=== PATIENT | female | born 1940 | race Caucasian/White ===

== ENCOUNTER 2018-01-31 07:35 | Inpatient (IN) | payer MEDICARE, OTHER ==
[2018-01-31] VITALS (29 sets, daily range): BP systolic 95–138; BP diastolic 53–107
[~2018-01-31] VITALS: Ht 172.7 cm; Wt 48.6 kg
[2018-01-31] MEDS ORDERED: NOREPINEPHRINE 8 MG/D5W 250 ML 250 ML ONE ×2 (07:47→16:52)
[2018-01-31] MEDS ORDERED: SODIUM CHLORIDE 0.9% 1000ML 2,000 ML ONE (07:47)
[2018-01-31] MEDS ORDERED: ETOMIDATE 2 MG/ML 10 ML INJ IV STA (08:03)
[2018-01-31] MEDS ORDERED: SUCCINYLCHOLINE 200 MG/10 ML SYR IV STA (08:03)
[2018-01-31] MEDS ORDERED: SODIUM CHLORIDE 0.9% 1000ML 2,000 ML IV ONE (08:15)
[2018-01-31] MEDS ORDERED: FENTANYL CITRATE INJ 2,000 MCG in SODIUM CHLORIDE 0.9% 250ML 210 ML IV PRN (08:15)
[2018-01-31 08:22] LABS: ABG HCO3 45 mmol/L (23-28); ABG PCO2 80 mmHg (41-51); ABG PH 7.35 (7.31-7.41); ABG PO2 448 mmHg (80-105)
[2018-01-31] MEDS: NOREPINEPHRINE INJ 4MG/4ML 8 MG in DEXTROSE 5% 250ML 250 ML IV PRN ×2 (08:30→18:00)
[2018-01-31] MEDS: MIDAZOLAM HCL 25 MG in SODIUM CHLORIDE 0.9% 50ML 45 ML IV PRN ×3 (08:30→15:59)
[2018-01-31 08:41] LABS: BASOPHILS # (AUTO) 0.1 (0.0-0.1); BASOPHILS % 0.6 % (0.0-1.0); HEMATOCRIT 45.9 % (34.2-44.1); HEMOGLOBIN 13.6 g/dL (12.0-16.0); LYMPHOCYTES # (AUTO) 0.8 (1.0-3.2); LYMPHOCYTES % 6.4 % (18.0-39.1); MEAN CORPUSCULAR HEMOGLOBIN 30.3 pg (28-32); MEAN CORPUSCULAR HGB CONC 29.6 g/dL (31-35); MEAN CORPUSCULAR VOLUME 102.2 fL (81-99); MONOCYTES # (AUTO) 0.6 (0.2-0.8); MONOCYTES % 5.1 % (4.4-11.3); NEUTROPHILS # (AUTO) 10.2 (2.1-6.9); NEUTROPHILS % 87.6 % (38.7-80.0); PLATELET COUNT 241 x10e3/uL (140-360); RED BLOOD COUNT 4.49 x10e6/uL (3.6-5.1); RED CELL DISTRIBUTION WIDTH 13.7 % (11.7-14.4)
--- NOTE | 2018-01-31 08:54 | Diagnostic Imaging Report ---
PROCEDURE: CHEST SINGLE (PORTABLE) COMPARISON: None. INDICATIONS: ET TUBE, SOB FINDINGS: Tip of endotracheal tube projects approximately 7.8 cm above the howie. Left internal jugular central venous catheter tip projects over the upper right atrium. Enteric tube tip projects over the distal esophagus. Lungs are reasonably well inflated. No gross consolidation. Probable trace right pleural effusion. Bilateral skin folds. Normal heart size without overt pulmonary edema. No pneumothorax. No acute osseous abnormality. CONCLUSION: Endotracheal tube tip projects approximately 7.8 cm above the howie. Advancement by 3-4 cm should be considered. Enteric tube tip projects over the expected region of the distal esophagus. Advancement is suggested. Trace right pleural effusion. Dictated by: Arslan Washburn M.D. on 01/31/2018 at 8:56 Electronically approved by: Arslan Washburn M.D. on 01/31/2018 at 8:56
[2018-01-31 09:01] LABS: ALANINE AMINOTRANSFERASE 67 IU/L (0-55); ALBUMIN 3.5 g/dL (3.5-5.0); ALBUMIN/GLOBULIN RATIO 0.9 (0.8-2.0); ALKALINE PHOSPHATASE 76 IU/L (40-150); ANION GAP 13.7 mmol/L (8-16); BLOOD UREA NITROGEN 29 mg/dL (7-26); BUN/CREATININE RATIO 43 (6-25); CARBON DIOXIDE 39 mmol/L (22-29); CHLORIDE 94 mmol/L (98-107); CREATININE, SERUM 0.68 mg/dL (0.57-1.11); EST GLOMERULAR FILTRATION RATE > 60 ML/MIN (60-); GLUCOSE 153 mg/dL (74-118); MAGNESIUM 2.1 MG/DL (1.3-2.1); PHOSPHORUS 4.4 MG/DL (2.3-4.7); POTASSIUM 4.7 mmol/L (3.5-5.1); SODIUM 142 mmol/L (136-145)
[2018-01-31 09:03] LABS: B-TYPE NATRIURETIC PEPTIDE2 187.4 pg/mL (0-100)
[2018-01-31 09:19] LABS: THYROID STIMULATING HORMONE 5.862 uIU/mL (0.350-4.940)
[2018-01-31] MEDS ORDERED: AZITHROMYCIN 250 MG TAB PO SCH (09:30)
[2018-01-31] MEDS ORDERED: ASPIRIN 81 MG CHEW TAB PO ONE (09:30)
[2018-01-31] MEDS ORDERED: DEXTROSE 5%/0.45% SOD CHL 1,000 ML IV ONE (09:30)
[2018-01-31] MEDS ORDERED: SODIUM CHLORIDE FLUSH 10 ML SYR INJ PRN (09:30)
[2018-01-31] MEDS ORDERED: CEFTRIAXONE SOD 1 GM VIAL IV SCH (09:30)
[2018-01-31] MEDS ORDERED: METHYLPREDNISOLONE SOD SUCC 125 MG/2ML VIAL IV ONE (09:45)
[2018-01-31 10:00] LABS: CREATINE KINASE MB 3.6 ng/mL (0-5.0)
--- OUTSIDE RECORDS SUMMARY | 2018-01-31 10:10 | XMS REPORT ---
Author [facility] Address Unknown Phone Unavailable Care Team Providers Care Hook Up Driver Name Role Phone SOPHIA CROCKETT Unavailable Unavailable Problems This patient has no known problems. Allergies, Adverse Reactions, Alerts This patient has no known allergies or adverse reactions. Medications This patient has no known medications. Results Test Description Test Time Test Comments Text Results Atomic Results Result Comments CHEST SINGLE (PORTABLE) [place] [address] Patient Name: STEPHANIE LARA MR #: [id number] : 1940 Age/Sex: 77/F Req #: [id number] Adm Physician: Ordered by: SOPHIA CROCKETT MD Report #: [id number] Location: ER Room/Bed: Procedure: [id number] DX/CHEST SINGLE (PORTABLE) Exam Date: 01/31/18 Exam Time: 0800 REPORT STATUS: Signed PROCEDURE: CHEST SINGLE (PORTABLE) COMPARISON: None. INDICATIONS: ET TUBE, SOB FINDINGS: Tip of endotracheal tube projects approximately 7.8 cm above the howie. Left internal jugular central venous catheter tip projects over the upper right atrium. Enteric tube tip projects over the distal esophagus. Lungs are reasonably well inflated. No gross consolidation. Probable trace right pleural effusion. Bilateral skin folds. Normal heart size without overt pulmonary edema. No pneumothorax. No acute osseous abnormality. CONCLUSION: Endotracheal tube tip projects approximately 7.8 cm above the howie. Advancement by 3-4 cm should be considered. Enteric tube tip projects over the expected region of the distal esophagus. Advancement is suggested. Trace right pleural effusion. Dictated by: Renetta Washburn M.D. on 01/31/2018 at 8:56 Electronically approved by: Renetta Washburn M.D. on 01/31/2018 at 8:56 Dictated By: RENETTA WASHBURN MD 5 Transcribed By: KESHAV on 01/31/18855 COPY TO: SOPHIA CROCKETT MD
[2018-01-31] MEDS ORDERED: MIRTAZAPINE15 MG PO (10:38)
[2018-01-31] MEDS: AZITHROMYCIN 500MG/NS 250 ML 250 ML IV SCH (11:09)
[2018-01-31 11:19] LABS: ABG HCO3 39 mmol/L (23-28); ABG PCO2 45 mmHg (41-51); ABG PH 7.54 (7.31-7.41); ABG PO2 208 mmHg (80-105)
--- NOTE | 2018-01-31 11:42 | Diagnostic Imaging Report ---
PROCEDURE: A single AP view of the chest. COMPARISON: None. INDICATIONS: ET TUBE PLACEMENT FINDINGS: Lines/tubes: Endotracheal tube has its tip about 4 cm above the howie. Enteric tube has its tip in the distal esophagus. Left internal jugular centimeters catheter has its tip in the high right atrium. Lungs: The lungs are well inflated and clear. There is no evidence of pneumonia or pulmonary edema. Pleura: Very small right pleural effusion, unchanged. Heart and mediastinum: The heart and the mediastinum are unremarkable. Bones: No acute bony abnormality. IMPRESSION: Endotracheal tube has its tip about 4 cm above the howie. Enteric tube has its tip in the distal esophagus. Consider advancement. Dictated by: Sameer Wilcox M.D. on 01/31/2018 at 11:44 Electronically approved by: Sameer Wilcox M.D. on 01/31/2018 at 11:44
[2018-01-31] MEDS ORDERED: SODIUM CHLORIDE 0.9% 50ML 50 ML ONE (11:45)
[2018-01-31] MEDS ORDERED: IOPAMIDOL 370 MG/ML 200 ML INFUS..BTL INJ ONE (11:45)
--- NOTE | 2018-01-31 13:33 | Diagnostic Imaging Report ---
PROCEDURE: CT scan of the chest WITH intravenous contrast, using pulmonary embolus protocol. TECHNIQUE: The chest was scanned utilizing a multidetector helical scanner from the lung apex through the level of the adrenal glands after the IV administration of 71 cc of Isovue 370. Coronal and sagittal multiplanar reformations were obtained. COMPARISON: Chest radiograph same day. INDICATIONS: Pulmonary embolism FINDINGS: Lines/tubes: Endotracheal tube tip terminates above the howie. Enteric tube tip terminates proximal to the gastroesophageal junction. Tip of the left internal jugular central venous catheter terminates in the high right atrium. Vasculature: There is a filling defect within a segmental branch of the right lower lobe pulmonary artery seen on series 2 image 61. The main pulmonary artery, right and left pulmonary arteries, and their visualized the lobar and segmental branches are otherwise patent, without additional filling defect. Pulmonary outflow tract is of normal caliber. There is no ectasia or aneurysmal dilatation of the thoracic aorta.. Great vessel origins are normal in caliber and configuration. Lungs and Airways: Coarse linear and reticular opacities with superimposed groundglass nodules and consolidations in the right lower lobe. Right basal pleural thickening and calcifications. Pleura: As above. No pneumothorax. Heart and mediastinum: Visualized portions of the thyroid gland are heterogeneous. No axillary, hilar, or mediastinal lymphadenopathy. Soft tissues: No focal soft tissue abnormalities are Abdomen: Visualized portions of the liver, spleen, pancreas, and adrenals are unremarkable. Gallstone is partially visualized. Bones: Diffuse osteopenia. No acute osseous abnormalities. IMPRESSION: Solitary right lower lobe segmental pulmonary embolus without CT findings of right heart strain. Findings suggest right lower lobe aspiration pneumonitis or atypical pneumonia superimposed on chronic postinflammatory changes. Cholelithiasis. Endotracheal tube and left internal jugular central venous catheter positioned as above. Enteric tube tip lies in the distal esophagus and advancement is suggested. Findings were discussed by telephone with Dr. Gomez of the [facility] emergency center at 1:30 PM 01/31/2018. Dictated by: Arslan Washburn M.D. on 01/31/2018 at 13:34 Electronically approved by: Arslan Washburn M.D. on 01/31/2018 at 13:34
[2018-01-31] MEDS: ACETAMINOPHEN 1000 MG/100 ML IV PRN (13:34)
--- NOTE | 2018-01-31 13:43 | Consultation ---
DATE OF CONSULTATION: January 31, 2018 PULMONARY CONSULTATION SOURCE OF HISTORY: Patient's son and the ER chart. The patient is intubated and sedated. HPI: Ms. Segovia is a 77-year-old female. She was brought into the emergency room because of weakness and shortness of breath that started yesterday, and she was very lethargic and weak. In the emergency room, she was hypoxic in the 70s and required endotracheal intubation. Chest x-ray did not show any considerable infiltrate. However, there is a possibility of right lower lobe infiltrate. She is currently sedated and intubated and not able to give me any history. REVIEW OF SYSTEMS: Unable to elicit as the patient is sedated and intubated. PAST MEDICAL HISTORY: Per the son, the patient has no known medical problem. She had a facial laceration after a fall in 2014, which was operated here at [facility]. Otherwise, she has been in good health. FAMILY AND SOCIAL HISTORY: She smoked for 20-plus years but quit 30 years ago. She lives next door to her son. PHYSICAL EXAMINATION VITAL SIGNS: Temperature 98.1, pulse of 90, blood pressure 103/86 respiratory rate 18. She is on mechanical ventilator with FiO2 of 90%, PEEP of 8, saturation 100%. She is on Levophed because of hypotension. HEENT: Head is atraumatic and normocephalic. Pupils are reactive. NECK: Supple. CHEST: Clear to auscultation bilaterally. No wheezing. HEART: S1, S2 audible. No murmurs, gallops or rub. ABDOMEN: Soft, nontender. EXTREMITIES: No clubbing, cyanosis or edema. NEUROLOGIC: She is sedated and intubated. LABS: White count 11,000, hemoglobin 13.6, platelets 241. Chemistry is within normal limits. BNP is mildly elevated to 187. TSH is 5.862. Chest x-ray shows possibility of infiltrate. ASSESSMENT: Ms. Segovia is a 77-year-old female who presented to the emergency room with hypoxia and shortness of breath. Currently, the etiology is not very clear. Pneumonia versus pulmonary embolism reason for hypoxia. The patient is in circulatory shock. No previous medical history. Possibility of septic shock. PLAN 1. Agree with CT chest with IV contrast to rule out pulmonary embolism. 2. IV azithromycin and Rocephin have been started. 3. Vent support to keep the O2 sat more than or equal to 92%. Vent settings reviewed. 4. Discussed with the patient's son at bedside in detail. Thank you for this consult. Job#: [id number]
[2018-01-31] MEDS: ENOXAPARIN INJ 80 MG/0.8 ML SYR SC SCH (14:10)
[2018-01-31] MEDS ORDERED: ETOMIDATE 2 MG/ML 10 ML INJ IV ONE (14:22)
[2018-01-31] MEDS ORDERED: MIDAZOLAM HCL 2 MG/2 ML VIAL ONE (14:22)
[2018-01-31] MEDS ORDERED: SUCCINYLCHOLINE CHLORIDE 20 MG/ML 10ML VIAL ONE (14:22)
[2018-01-31 18:24] LABS: CREATINE KINASE MB 1.8 ng/mL (0-5.0)
[2018-01-31] MEDS: FAMOTIDINE 20 MG/2 ML VIAL IV SCH (18:52)
[2018-01-31] MEDS: METHYLPREDNISOLONE SOD SUCC 125 MG/2ML VIAL IV SCH (18:52)
[2018-01-31] MEDS: ALBUTEROL/IPRATROPIUM 3 ML NEB NEB SCH ×3 (19:05→22:25)
--- NOTE | 2018-01-31 20:37 | Diagnostic Imaging Report ---
EXAM: ABDOMEN-1VIEW (KUB), DATE: 01/31/2018 7:35 PM INDICATION: Check nasogastric tube. COMPARISON: None FINDINGS: LINES/TUBES: NG tube with distal tip projected on the gastric fundus laterally. BOWEL PATTERN: No evidence for obstruction. SOFT TISSUES: Calcified gallstones. No mass effect. LUNG BASES: Patchy density in the left right lung base. BONES: No acute findings. Rotatory levoscoliosis of the lumbar spine. IMPRESSION: NG tube with distal tip in the gastric fundus laterally. Signed by: Dr. Addison Wild M.D. on 01/31/2018 8:33 PM
[2018-01-31] MEDS ORDERED: ENOXAPARIN INJ 80 MG/0.8 ML SYR SC SCH (21:00)
[2018-01-31] MEDS ORDERED: SODIUM CHLORIDE 0.9% 1000ML 1,000 ML ONE (21:39)
[2018-01-31] MEDS: SODIUM CHLORIDE 0.9% 1000ML 1,000 ML IV SCH (21:46)
[2018-02-01] VITALS (65 sets, daily range): BP systolic 80–133; BP diastolic 44–99
[2018-02-01 01:19] LABS: CREATINE KINASE MB 3.6 ng/mL (0-5.0)
[2018-02-01] MEDS: ENOXAPARIN INJ 80 MG/0.8 ML SYR SC SCH ×2 (01:43→14:00)
[2018-02-01] MEDS: METHYLPREDNISOLONE SOD SUCC 125 MG/2ML VIAL IV SCH (01:43)
[2018-02-01] MEDS ORDERED: METOPROLOL TARTRATE INJ 1 MG/ML VIAL IV ONE (02:30)
[2018-02-01] MEDS: ACETAMINOPHEN 1000 MG/100 ML IV PRN ×3 (02:46→08:51)
[2018-02-01] MEDS: ALBUTEROL/IPRATROPIUM 3 ML NEB NEB SCH ×6 (03:35→23:00)
[2018-02-01 05:13] LABS: BASOPHILS % 0.1 % (0.0-1.0); HEMATOCRIT 36.8 % (34.2-44.1); HEMOGLOBIN 12.4 g/dL (12.0-16.0); LYMPHOCYTES % 9.3 % (18.0-39.1); MEAN CORPUSCULAR HEMOGLOBIN 30.5 pg (28-32); MEAN CORPUSCULAR HGB CONC 33.7 g/dL (31-35); MEAN CORPUSCULAR VOLUME 90.6 fL (81-99); MONOCYTES # (AUTO) 0.3 (0.2-0.8); MONOCYTES % 2.4 % (4.4-11.3); NEUTROPHILS % 87.8 % (38.7-80.0); PLATELET COUNT 191 x10e3/uL (140-360); RED BLOOD COUNT 4.06 x10e6/uL (3.6-5.1); RED CELL DISTRIBUTION WIDTH 13.9 % (11.7-14.4)
[2018-02-01 05:22] LABS: INR 1.14; PROTHROMBIN TIME 13.7 seconds (11.9-14.5)
[2018-02-01 05:23] LABS: PARTIAL THROMBOPLASTIN TIME 33.6 seconds (23.8-35.5)
[2018-02-01 05:31] LABS: ANION GAP 13.6 mmol/L (8-16); BLOOD UREA NITROGEN 26 mg/dL (7-26); BUN/CREATININE RATIO 45 (6-25); CARBON DIOXIDE 27 mmol/L (22-29); CHLORIDE 101 mmol/L (98-107); CHOL/HDL RATIO 2.5 (3.0-3.6); CHOLESTEROL 157 MD/DL (0-199); CREATININE, SERUM 0.58 mg/dL (0.57-1.11); EST GLOMERULAR FILTRATION RATE > 60 ML/MIN (60-); GLUCOSE 139 mg/dL (74-118); HDL CHOLESTEROL 62 MG/DL (40-60); LDL CHOLESTEROL 82 MG/DL (60-130); POTASSIUM 3.6 mmol/L (3.5-5.1); SODIUM 138 mmol/L (136-145); TRIGLYCERIDES 67 MG/DL (0-149)
--- NOTE | 2018-02-01 06:17 | Diagnostic Imaging Report ---
EXAMINATION: CHEST SINGLE (PORTABLE) INDICATION: Intubation. COMPARISON: 01/31/2018 FINDINGS: TUBES and LINES: Endotracheal, and left IJ central line catheter are visualized in good position. Interval advancement of NG tube now below the diaphragm LUNGS: Lungs are well inflated. Lungs are clear. There is mild prominence of the central pulmonary vasculature, consistent with pulmonary venous congestion. PLEURA: No pleural effusion or pneumothorax. HEART AND MEDIASTINUM: The cardiomediastinal silhouette is unremarkable. BONES AND SOFT TISSUES: No acute osseous lesion. Soft tissues are unremarkable. UPPER ABDOMEN: No free air under the diaphragm. IMPRESSION: 1. No acute thoracic abnormality. 2. Tubes and lines are in good position. Signed by: Dr. Luis Lafleur M.D. on 02/01/2018 6:13 AM
[2018-02-01] MEDS: SODIUM CHLORIDE 0.9% 1000ML 1,000 ML IV SCH (07:45)
[2018-02-01] MEDS: FAMOTIDINE 20 MG/2 ML VIAL IV SCH ×2 (08:50→17:27)
--- NOTE | 2018-02-01 10:18 | Consultation ---
DATE OF CONSULTATION: February 01, 2018 CARDIOLOGY CONSULTATION REASON FOR CONSULT: Tachycardia. REQUESTING PHYSICIAN: Dr. Burns HPI: This is a 77-year-old female that presented with shortness of breath. According to the son at the bedside, she has a history of emphysema. Does not follow up with any doctor. She was found with respiratory distress and altered mental status and was brought over for evaluation. In the emergency room, she was found with low oxygen saturation, and she was intubated and later transferred to the ICU for evaluation. Her blood pressure was found to be on the low side, and she was started on a Levophed drip, which was later weaned off. Last night, she was being bathed by the nurse, and the heart went into the 130s. Cardiology was consulted for tachycardia. She is intubated and sedated, and the son is at the bedside. EKG is showing a normal sinus rhythm. Troponin was negative. BNP 187. PAST MEDICAL HISTORY: Emphysema and fall. PAST SURGICAL HISTORY: Facial surgery in 2015 due to fall. FAMILY HISTORY: Noncontributory. SOCIAL HISTORY: She lives at home alone with the son next door. She smoked for many years but quit 30 years ago. MEDICATIONS: She was on ekkz-vwa-wenjkck vitamins. ALLERGIES: SHE IS NOT ALLERGIC TO ANY MEDICATION. REVIEW OF SYSTEMS: Unable to obtain. She is intubated and sedated. PHYSICAL EXAMINATION VITAL SIGNS: Temperature 97, heart rate 69, blood pressure 118/80, oxygen saturation 100% on mechanical ventilator. GENERAL: She is thin and frail, intubated and sedated. HEENT: Mucous membranes are dry. NECK: Supple. LUNGS: Bilateral decreased breath sounds. CARDIOVASCULAR: S1 and S2 present. ABDOMEN: Soft. NEUROLOGIC: Sedated. EXTREMITIES: Bilateral lower with trace edema. LABS: Sodium 138, potassium 3.6, chloride 101, CO2 27, BUN 26, creatinine 0.58, glucose 139. White blood cells 10.2, hemoglobin 12.4, hematocrit 36.8, platelets 191. PT 13.7, PTT 33.6, INR 1.14. IMPRESSION 1. Tachycardia. 2. Respiratory distress. 3. Altered mental status. 4. Pulmonary emboli. 5. Pneumonia. 6. Hypotension. ASSESSMENT AND PLAN: The heart rate is controlled back to normal sinus rhythm. Blood pressure is stable. She has been off Levophed drip. We will go ahead and get an echocardiogram to assess the LV and valve function. She has been started on Lovenox b.i.d. Further cardiac workup pending clinical course. Thank you for this consultation. Dictated by Alexander Heck NP Job#: [id number]
[2018-02-01] MEDS: AZITHROMYCIN 500MG/NS 250 ML 250 ML IV SCH (10:21)
[2018-02-01 11:07] LABS: FREE T4 (FREE THYROXINE) 0.94 ng/dL (0.9-1.8)
[2018-02-01] MEDS: PIPER-TAZ 3.375 GM 100 ML IV SCH ×2 (12:00→17:27)
[2018-02-01] MEDS ORDERED: ACETAMINOPHEN 1000 MG/100 ML IV PRN (21:45)
[2018-02-01] MEDS: METHYLPREDNISOLONE SOD SUCC 40 MG/ML VIAL IV SCH (21:47)
[2018-02-02] VITALS (48 sets, daily range): BP systolic 81–143; BP diastolic 51–98
[2018-02-02] MEDS: PIPER-TAZ 3.375 GM 100 ML IV SCH ×4 (00:30→18:00)
[2018-02-02] MEDS: ENOXAPARIN INJ 80 MG/0.8 ML SYR SC SCH ×2 (02:05→14:10)
[2018-02-02] MEDS: ALBUTEROL/IPRATROPIUM 3 ML NEB NEB SCH ×4 (02:45→11:35)
--- NOTE | 2018-02-02 06:00 | Diagnostic Imaging Report ---
EXAMINATION: CHEST SINGLE (PORTABLE) INDICATION: Intubated COMPARISON: 02/01/2018 FINDINGS: TUBES and LINES: Endotracheal, NG tube, left IJ central line catheter and oxygen tubing are stable. LUNGS: Lungs are not well inflated. Interval development of interlobular septi thickening. There is mild prominence of the central pulmonary vasculature, consistent with pulmonary venous congestion. PLEURA: Small right pleural effusion. HEART AND MEDIASTINUM: The cardiomediastinal silhouette is unremarkable. There are atherosclerotic calcifications within the aorta. BONES AND SOFT TISSUES: No acute osseous lesion. Soft tissues are unremarkable. UPPER ABDOMEN: No free air under the diaphragm. IMPRESSION: Findings are compatible with developing pulmonary edema and small right pleural effusion. Tubes and lines are stable Signed by: Dr. Luis Lafleur M.D. on 02/02/2018 5:57 AM
[2018-02-02 06:01] LABS: BASOPHILS % 0.1 % (0.0-1.0); HEMATOCRIT 33.8 % (34.2-44.1); HEMOGLOBIN 11.4 g/dL (12.0-16.0); LYMPHOCYTES # (AUTO) 1.2 (1.0-3.2); LYMPHOCYTES % 9.4 % (18.0-39.1); MEAN CORPUSCULAR HEMOGLOBIN 30.6 pg (28-32); MEAN CORPUSCULAR HGB CONC 33.7 g/dL (31-35); MEAN CORPUSCULAR VOLUME 90.9 fL (81-99); MONOCYTES # (AUTO) 0.7 (0.2-0.8); MONOCYTES % 5.3 % (4.4-11.3); NEUTROPHILS % 84.6 % (38.7-80.0); PLATELET COUNT 196 x10e3/uL (140-360); RED BLOOD COUNT 3.72 x10e6/uL (3.6-5.1); RED CELL DISTRIBUTION WIDTH 14.3 % (11.7-14.4)
[2018-02-02 06:10] LABS: ANION GAP 10.4 mmol/L (8-16); BLOOD UREA NITROGEN 26 mg/dL (7-26); BUN/CREATININE RATIO 49 (6-25); CALCIUM 8.5 mg/dL (8.4-10.2); CARBON DIOXIDE 25 mmol/L (22-29); CHLORIDE 107 mmol/L (98-107); CREATININE, SERUM 0.53 mg/dL (0.57-1.11); EST GLOMERULAR FILTRATION RATE > 60 ML/MIN (60-); GLUCOSE 102 mg/dL (74-118); POTASSIUM 3.4 mmol/L (3.5-5.1); SODIUM 139 mmol/L (136-145)
[2018-02-02] MEDS ORDERED: SODIUM CHLORIDE 0.9% 1000ML 1,000 ML ONE (06:49)
[2018-02-02] MEDS: FAMOTIDINE 20 MG/2 ML VIAL IV SCH ×2 (08:18→18:00)
[2018-02-02] MEDS: METHYLPREDNISOLONE SOD SUCC 40 MG/ML VIAL IV SCH ×2 (08:18→21:21)
[2018-02-02] MEDS ORDERED: POTASSIUM CHLORIDE 20MEQ/100ML 200 ML IV ONE (08:45)
[2018-02-02 09:48] LABS: ABG HCO3 26 mmol/L (23-28); ABG PCO2 39 mmHg (41-51); ABG PH 7.43 (7.31-7.41); ABG PO2 69 mmHg (80-105)
[2018-02-02] MEDS: AZITHROMYCIN 500MG/NS 250 ML 250 ML IV SCH (10:22)
[2018-02-02] MEDS ORDERED: FUROSEMIDE INJ 10 MG/ML 4 ML VIAL IV ONE ×2 (11:30→11:45)
[2018-02-02] MEDS: IPRATROPIUM BROMIDE 0.02% 2.5 ML NEB NEB SCH ×2 (15:05→19:25)
[2018-02-02] MEDS: LEVALBUTEROL HCL SOLN NEBU 1.25 MG/3 ML NEB INH PRN ×2 (15:05→19:25)
[2018-02-02] MEDS: METOPROLOL TARTRATE INJ 1 MG/ML VIAL IV PRN (20:08)
[2018-02-03] VITALS (68 sets, daily range): BP systolic 101–134; BP diastolic 52–104
[2018-02-03] MEDS: PIPER-TAZ 3.375 GM 100 ML IV SCH ×4 (00:40→18:04)
[2018-02-03] MEDS: IPRATROPIUM BROMIDE 0.02% 2.5 ML NEB NEB SCH ×4 (02:20→19:15)
[2018-02-03] MEDS: LEVALBUTEROL HCL SOLN NEBU 1.25 MG/3 ML NEB INH PRN ×4 (02:20→19:15)
[2018-02-03] MEDS: METOPROLOL TARTRATE INJ 1 MG/ML VIAL IV PRN ×2 (02:43→08:12)
[2018-02-03] MEDS: ENOXAPARIN INJ 80 MG/0.8 ML SYR SC SCH ×2 (02:43→14:30)
[2018-02-03 05:42] LABS: BASOPHILS % 0.1 % (0.0-1.0); HEMATOCRIT 39.6 % (34.2-44.1); HEMOGLOBIN 12.4 g/dL (12.0-16.0); LYMPHOCYTES # (AUTO) 0.5 (1.0-3.2); MEAN CORPUSCULAR HEMOGLOBIN 30.6 pg (28-32); MEAN CORPUSCULAR HGB CONC 31.3 g/dL (31-35); MEAN CORPUSCULAR VOLUME 97.8 fL (81-99); MONOCYTES # (AUTO) 0.3 (0.2-0.8); MONOCYTES % 2.6 % (4.4-11.3); NEUTROPHILS # (AUTO) 12.2 (2.1-6.9); NEUTROPHILS % 92.9 % (38.7-80.0); PLATELET COUNT 202 x10e3/uL (140-360); RED BLOOD COUNT 4.05 x10e6/uL (3.6-5.1); RED CELL DISTRIBUTION WIDTH 14.8 % (11.7-14.4)
[2018-02-03] MEDS: LEVOTHYROXINE SODIUM 25 MCG TABLET PO SCH ×2 (05:43→06:00)
[2018-02-03 06:01] LABS: ALANINE AMINOTRANSFERASE 104 IU/L (0-55); ALBUMIN 2.9 g/dL (3.5-5.0); ALBUMIN/GLOBULIN RATIO 0.9 (0.8-2.0); ALKALINE PHOSPHATASE 65 IU/L (40-150); ANION GAP 12.4 mmol/L (8-16); BLOOD UREA NITROGEN 27 mg/dL (7-26); BUN/CREATININE RATIO 47 (6-25); CARBON DIOXIDE 27 mmol/L (22-29); CHLORIDE 109 mmol/L (98-107); CREATININE, SERUM 0.57 mg/dL (0.57-1.11); EST GLOMERULAR FILTRATION RATE > 60 ML/MIN (60-); GLUCOSE 105 mg/dL (74-118); MAGNESIUM 1.9 MG/DL (1.3-2.1); POTASSIUM 4.4 mmol/L (3.5-5.1); SODIUM 144 mmol/L (136-145)
--- NOTE | 2018-02-03 07:02 | Diagnostic Imaging Report ---
EXAMINATION: CHEST SINGLE (PORTABLE) INDICATION: Post extubation COMPARISON: 02/02/2018 FINDINGS: TUBES and LINES: Endotracheal tube has been removed. Left IJ central line catheter is stable in good position. LUNGS: Lungs are not well inflated. There are bibasilar atelectasis. There is mild prominence of the central pulmonary vasculature, consistent with pulmonary venous congestion. Right lower lobe airspace opacity. PLEURA: Trace of right pleural effusion is stable HEART AND MEDIASTINUM: The cardiomediastinal silhouette is unremarkable. BONES AND SOFT TISSUES: No acute osseous lesion. Soft tissues are unremarkable. UPPER ABDOMEN: No free air under the diaphragm. IMPRESSION: Decreased lung volumes with persistent right lung base airspace opacity. Central vascular congestion present. Signed by: Dr. Luis Lafleur M.D. on 02/03/2018 6:59 AM
[2018-02-03] MEDS: METHYLPREDNISOLONE SOD SUCC 40 MG/ML VIAL IV SCH ×2 (08:09→20:33)
[2018-02-03] MEDS: FAMOTIDINE 20 MG/2 ML VIAL IV SCH ×2 (08:09→16:57)
[2018-02-03] MEDS ORDERED: DIGOXIN INJ 0.25 MG/ML 2 ML AMP IV ONE (09:00)
[2018-02-03 10:23] LABS: ABG HCO3 30 mmol/L (23-28); ABG PCO2 56 mmHg (41-51); ABG PH 7.33 (7.31-7.41); ABG PO2 113 mmHg (80-105)
[2018-02-03] MEDS: AZITHROMYCIN 500MG/NS 250 ML 250 ML IV SCH (11:15)
[2018-02-03] MEDS: FUROSEMIDE INJ 10 MG/ML 4 ML VIAL IV SCH (11:30)
[2018-02-04] VITALS (69 sets, daily range): BP systolic 89–147; BP diastolic 51–94
[2018-02-04] MEDS: PIPER-TAZ 3.375 GM 100 ML IV SCH ×4 (00:36→18:04)
[2018-02-04] MEDS: ENOXAPARIN INJ 80 MG/0.8 ML SYR SC SCH ×2 (02:15→16:19)
[2018-02-04] MEDS ORDERED: DIGOXIN INJ 0.25 MG/ML 2 ML AMP IV ONE (05:30)
[2018-02-04] MEDS: LEVOTHYROXINE SODIUM 25 MCG TABLET PO SCH (06:00)
[2018-02-04 06:14] LABS: BASOPHILS % 0.1 % (0.0-1.0); LYMPHOCYTES # (AUTO) 0.8 (1.0-3.2); LYMPHOCYTES % 7.7 % (18.0-39.1); MEAN CORPUSCULAR HEMOGLOBIN 30.6 pg (28-32); MEAN CORPUSCULAR HGB CONC 31.6 g/dL (31-35); MEAN CORPUSCULAR VOLUME 96.9 fL (81-99); MONOCYTES # (AUTO) 0.4 (0.2-0.8); MONOCYTES % 4.2 % (4.4-11.3); NEUTROPHILS # (AUTO) 8.8 (2.1-6.9); NEUTROPHILS % 87.7 % (38.7-80.0); PLATELET COUNT 196 x10e3/uL (140-360); RED BLOOD COUNT 3.92 x10e6/uL (3.6-5.1)
[2018-02-04 06:36] LABS: ANION GAP 15.6 mmol/L (8-16); BLOOD UREA NITROGEN 29 mg/dL (7-26); BUN/CREATININE RATIO 51 (6-25); CALCIUM 9.2 mg/dL (8.4-10.2); CARBON DIOXIDE 29 mmol/L (22-29); CHLORIDE 106 mmol/L (98-107); CREATININE, SERUM 0.57 mg/dL (0.57-1.11); EST GLOMERULAR FILTRATION RATE > 60 ML/MIN (60-); GLUCOSE 88 mg/dL (74-118); POTASSIUM 3.6 mmol/L (3.5-5.1); SODIUM 147 mmol/L (136-145)
[2018-02-04] MEDS: IPRATROPIUM BROMIDE 0.02% 2.5 ML NEB NEB SCH ×4 (07:33→19:10)
[2018-02-04] MEDS: LEVALBUTEROL HCL SOLN NEBU 1.25 MG/3 ML NEB INH PRN ×4 (07:34→19:10)
[2018-02-04] MEDS: LEVOTHYROXINE SODIUM 100 MCG/VIAL IV SCH (10:09)
[2018-02-04] MEDS: FAMOTIDINE 20 MG/2 ML VIAL IV SCH ×2 (10:09→16:19)
[2018-02-04] MEDS: FUROSEMIDE INJ 10 MG/ML 4 ML VIAL IV SCH (10:09)
[2018-02-04] MEDS: METHYLPREDNISOLONE SOD SUCC 40 MG/ML VIAL IV SCH ×2 (10:09→20:26)
[2018-02-04] MEDS: AZITHROMYCIN 500MG/NS 250 ML 250 ML IV SCH (12:56)
[2018-02-05] VITALS (51 sets, daily range): BP systolic 92–150; BP diastolic 30–90
[2018-02-05] MEDS: PIPER-TAZ 3.375 GM 100 ML IV SCH ×4 (00:02→18:27)
[2018-02-05] MEDS: METOPROLOL TARTRATE INJ 1 MG/ML VIAL IV PRN ×5 (00:30→21:21)
[2018-02-05] MEDS: ENOXAPARIN INJ 80 MG/0.8 ML SYR SC SCH ×2 (02:11→17:04)
[2018-02-05 06:05] LABS: HEMOGLOBIN 11.6 g/dL (12.0-16.0); LYMPHOCYTES # (AUTO) 0.8 (1.0-3.2); LYMPHOCYTES % 10.5 % (18.0-39.1); MEAN CORPUSCULAR HEMOGLOBIN 30.4 pg (28-32); MEAN CORPUSCULAR HGB CONC 31.4 g/dL (31-35); MEAN CORPUSCULAR VOLUME 97.1 fL (81-99); MONOCYTES # (AUTO) 0.5 (0.2-0.8); MONOCYTES % 6.1 % (4.4-11.3); NEUTROPHILS # (AUTO) 6.3 (2.1-6.9); PLATELET COUNT 167 x10e3/uL (140-360); RED BLOOD COUNT 3.81 x10e6/uL (3.6-5.1); RED CELL DISTRIBUTION WIDTH 13.5 % (11.7-14.4)
[2018-02-05 06:40] LABS: MAGNESIUM 1.8 MG/DL (1.3-2.1); PHOSPHORUS 2.7 MG/DL (2.3-4.7)
[2018-02-05] MEDS: IPRATROPIUM BROMIDE 0.02% 2.5 ML NEB NEB SCH ×5 (07:25→19:30)
[2018-02-05] MEDS: LEVALBUTEROL HCL SOLN NEBU 1.25 MG/3 ML NEB INH PRN ×4 (07:25→19:30)
[2018-02-05] MEDS: FAMOTIDINE 20 MG/2 ML VIAL IV SCH ×2 (08:53→18:27)
[2018-02-05] MEDS: METHYLPREDNISOLONE SOD SUCC 40 MG/ML VIAL IV SCH (08:53)
[2018-02-05] MEDS: LEVOTHYROXINE SODIUM 100 MCG/VIAL IV SCH (08:53)
[2018-02-05] MEDS: FUROSEMIDE INJ 10 MG/ML 4 ML VIAL IV SCH (08:53)
[2018-02-05] MEDS: AZITHROMYCIN 500MG/NS 250 ML 250 ML IV SCH (11:24)
--- NOTE | 2018-02-05 17:33 | Diagnostic Imaging Report ---
PROCEDURE:US CHEST (INCL MEDIASTINUM) COMPARISON:Patients [facility], DX, CHEST SINGLE (PORTABLE), 02/04/2018, 6:54. INDICATIONS:RIGHT EFFUSION FINDINGS: The examination shows trace right pleural effusion and very small left pleural effusion. Associated bilateral lower lobe very mild atelectatic changes. CONCLUSION: 1. Trace right pleural effusion and very small left pleural effusion. Neel Dukes M.D. Dictated by: Neel Dukes M.D. on 02/05/2018 at 17:35 Electronically approved by: Neel Dukes M.D. on 02/05/2018 at 17:35
[2018-02-06] VITALS (25 sets, daily range): BP systolic 65–131; BP diastolic 49–85
[2018-02-06] MEDS: PIPER-TAZ 3.375 GM 100 ML IV SCH ×4 (00:19→18:32)
[2018-02-06] MEDS: LEVALBUTEROL HCL SOLN NEBU 1.25 MG/3 ML NEB INH PRN ×4 (00:30→18:48)
[2018-02-06] MEDS: IPRATROPIUM BROMIDE 0.02% 2.5 ML NEB NEB SCH ×5 (00:30→18:48)
[2018-02-06] MEDS: METOPROLOL TARTRATE INJ 1 MG/ML VIAL IV PRN (01:00)
[2018-02-06] MEDS: ENOXAPARIN INJ 80 MG/0.8 ML SYR SC SCH ×2 (02:00→13:00)
[2018-02-06] MEDS: LEVOTHYROXINE SODIUM 125 MCG TAB PO SCH (06:00)
[2018-02-06 06:14] LABS: BASOPHILS % 0.1 % (0.0-1.0); EOSINOPHILS % 0.3 % (0.0-6.0); HEMATOCRIT 36.5 % (34.2-44.1); HEMOGLOBIN 11.2 g/dL (12.0-16.0); LYMPHOCYTES # (AUTO) 1.4 (1.0-3.2); LYMPHOCYTES % 18.8 % (18.0-39.1); MEAN CORPUSCULAR HEMOGLOBIN 30.5 pg (28-32); MEAN CORPUSCULAR HGB CONC 30.7 g/dL (31-35); MEAN CORPUSCULAR VOLUME 99.5 fL (81-99); MONOCYTES # (AUTO) 0.7 (0.2-0.8); NEUTROPHILS # (AUTO) 5.3 (2.1-6.9); NEUTROPHILS % 71.5 % (38.7-80.0); PLATELET COUNT 153 x10e3/uL (140-360); RED BLOOD COUNT 3.67 x10e6/uL (3.6-5.1); RED CELL DISTRIBUTION WIDTH 13.2 % (11.7-14.4)
[2018-02-06 06:35] LABS: MAGNESIUM 1.8 MG/DL (1.3-2.1); PHOSPHORUS 2.3 MG/DL (2.3-4.7)
[2018-02-06] MEDS ORDERED: METHYLPREDNISOLONE SOD SUCC 40 MG/ML VIAL IV SCH (07:30)
[2018-02-06] MEDS: FAMOTIDINE 20 MG/2 ML VIAL IV SCH ×2 (08:28→18:32)
[2018-02-06] MEDS ORDERED: FUROSEMIDE INJ 10 MG/ML 4 ML VIAL IV SCH (09:00)
[2018-02-07] MEDS: PIPER-TAZ 3.375 GM 100 ML IV SCH ×3 (00:20→11:30)
[2018-02-07] MEDS: ENOXAPARIN INJ 80 MG/0.8 ML SYR SC SCH ×2 (02:07→13:16)
[2018-02-07] MEDS: IPRATROPIUM BROMIDE 0.02% 2.5 ML NEB NEB SCH ×3 (02:26→13:55)
[2018-02-07 03:14] VITALS: BP 122/64
[2018-02-07] MEDS ORDERED: SODIUM CHLORIDE 0.9% 1000ML 0 ML ONE (03:57)
[2018-02-07] MEDS: LEVOTHYROXINE SODIUM 125 MCG TAB PO SCH (06:28)
[2018-02-07 07:25] VITALS: BP 138/71
[2018-02-07] MEDS: LEVALBUTEROL HCL SOLN NEBU 1.25 MG/3 ML NEB INH PRN ×2 (07:38→13:55)
[2018-02-07] MEDS: FAMOTIDINE 20 MG/2 ML VIAL IV SCH (08:53)
[2018-02-07 11:02] VITALS: BP 121/60
[2018-02-07 11:10] VITALS: BP 121/60
[2018-02-07 14:00] VITALS: BP 128/70
[2018-02-07] MEDS ORDERED: APIXAB 2.5 MG TABLET PO SCH (17:00)
--- NOTE | 2018-02-08 09:13 | Diagnostic Imaging Report ---
PROCEDURE:CHEST SINGLE (PORTABLE) TECHNIQUE:Portable AP abdomen INDICATION:Shortness of breath COMPARISON:Patients [facility], DX, CHEST SINGLE (PORTABLE), 02/03/2018, 5:15. FINDINGS: Left internal jugular central venous catheter tip in the right atrium. Right hemidiaphragm elevation. Clear left lung. Normal heart size. Mild central vascular prominence, stable. Intact skeleton. CONCLUSION: Stable right hemidiaphragm elevation. No acute abnormality or interval change from February 03, 2018. Persistent mild vascular congestion. Please note that while the study was obtained February 04, 2018 it was presented for interpretation February 08, 2018. Dictated by: Carroll Rivas M.D. on 02/08/2018 at 9:15 Electronically approved by: Carroll Rivas M.D. on 02/08/2018 at 9:15
== END 2018-02-07 15:50 | disposition hospice, inpatient (51) | DRG 871 ==
LOC: ER 07:35 → ERHOLD 10:08 → ICU 16:14
PROVIDERS: ADMIT Internal Medicine; ATTEND Internal Medicine
PROC: 5A1945Z Respiratory Ventilation, 24-96 Consecutive Hours (ICD-10-PCS; principal; 2018-01-31)
PROC: 0BH17EZ Insertion of Endotracheal Airway into Trachea, Via Natural or Artificial Opening (ICD-10-PCS; 2018-01-31)
DX: A40.8 Other streptococcal sepsis (principal); J96.01 Acute respiratory failure with hypoxia; I26.99 Other pulmonary embolism without acute cor pulmonale; J18.9 Pneumonia, unspecified organism; R65.21 Severe sepsis with septic shock; J96.02 Acute respiratory failure with hypercapnia; E43 Unspecified severe protein-calorie malnutrition; N39.0 Urinary tract infection, site not specified; Z68.1 Body mass index [BMI] 19.9 or less, adult; I47.1 Supraventricular tachycardia; J44.9 Chronic obstructive pulmonary disease, unspecified; Z87.891 Personal history of nicotine dependence; E03.9 Hypothyroidism, unspecified; B96.20 Unspecified Escherichia coli [E. coli] as the cause of diseases classified elsewhere; I50.9 Heart failure, unspecified; I95.9 Hypotension, unspecified; Z66 Do not resuscitate
CPT/HCPCS: 31500; 36415; 36600; 51700; 71045; 71260; 74018; 76604; 80048; 80053; 80061; 82550; 82553; 82805; 82948; 83605; 83735; 83880; 84100; 84439; 84443; 84479; 84484; 85025; 85610; 85730; 87040; 87071; 87086; 87186; 87205; 93005; 93306; 94002; 94003; 94640; 94660; 96361; 96366; 96367; 96372; 96375; 97139; 99285; J0330; J0456; J0696; J1160; J1650; J1940; J2250; J2543; J2920; J2930; J3480; J7030; Q9967